=== PATIENT | male | born 1980 | race Caucasian/White ===

== ENCOUNTER 2017-10-25 07:24 | Day surgery (SDC) | payer BC ==
[~2017-10-25] VITALS: Ht 175.3 cm; Wt 76.7 kg
--- NOTE | ~2017-10-25 | OP ---
PATIENT NAME: LEIGH ANN AMAYA MEDICAL RECORD: [id number] :76 LOCATION:D.OPS ADMISSION DATE: SURGEON: PUNEET PERALTA MD DATE OF OPERATION: 10/25/2017 PREOPERATIVE DIAGNOSIS: Anal fissure. POSTOPERATIVE DIAGNOSES: 1. Anal fissure. 2. Anal fistula with a perirectal abscess. 3. Pseudopolyp. 4. Indurated mass at 12 o'clock. PROCEDURES: 1. Anal evaluation under anesthesia. 2. Excisional debridement with drainage of perirectal abscess. 3. Anal biopsy at 12 o'clock with closure. 4. Marsupialization of the abscess cavity. 5. Excision of a pseudopolyp. SURGEON: Puneet Peralta MD PROCUREMENT CONSULTANT: None. BLOOD LOSS: Minimal. ANESTHESIA: General. COMPLICATIONS: None. Clinically, this patient had an anal fissure. He states that it felt like he was defecating razor blades when he defecated. Also, a nodule could be felt on digital examination. OPERATIVE COURSE: The patient was conveyed to the operating room electively on 10/25/2017. General anesthesia was induced by the anesthesia staff. The patient was placed in the lithotomy position. The anus and perianal areas were sterilely prepped and draped. U-shaped anal retractors were placed. The findings were very unusual. Purulence could be identified coming from within the anus at 6 o'clock. It was coming from an area between the internal and external anal sphincters. I was able to take the reverse probe and was able to probe this and identified that there was an abscess cavity with pus, which was cultured and that this consisted of a fistula that was traveling through this abscess cavity. I brought the reverse fistula probe out through the skin opening and the anoderm. I then incised the fistula over the probe. This revealed an abscess cavity, which led up behind the rectum about 2 inches. 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 I curetted out the abscess cavity. I then irrigated with hydrogen peroxide. I marsupialized the abscess cavity with a running locking 3-0 Vicryl Rapide suture and then put a piece of Gelfoam within the abscess cavity. The posterior distal rectum and anus were very soft. This was due to the underlying abscess cavity. There was a polypoid mass that had not appeared adenomatous and I think it is a pseudopolyp. This was excised. I then oversewed this excised area with a OPERATIVE REPORT [id number] LEIGH ANN AMAYA horizontal mattress 3-0 Vicryl sutures. Upon further inspection, there was a nodular lesion at the anal verge at 12 o'clock. This was excised with the Harmonic scalpel and the dimensions of the excision were 1.0 x 1.0 cm. I then closed the wound with a single horizontal mattress 3-0 Vicryl Rapide suture. Gelfoam was applied within the anus and rectum. A combination of steroid preparation and Marcaine were used to infiltrate the perianal tissues. A topical anesthetic ointment was then applied over the external hemorrhoids. The patient was then extubated and conveyed to the post-anesthesia care unit where he was in stable condition. I will see him in the office in 2-3 weeks. He is going to be dismissed home on Colace, Flagyl, [place] as well as Valium as a good anal muscle relaxant. TRANSINT:[id number] Voice Confirmation ID: [id number] DOCUMENT ID: [id number] PUNEET PERALTA MD CC: CLAY GARIBAY MD [id number] DICTATION DATE: 10/25/171824 JAVA DEVELOPMENT MANAGER: 10/25/172043 [facility] 10/25/17 [facility] [address] [place] [address]
[~2017-10-25 07:24] MED LIST: LIPITOR20 MG PO; ZESTRIL20 MG PO
[2017-10-25 08:12] LABS: HEMATOCRIT 47.7 % (42.0-54.0); HEMOGLOBIN 16.7 g/dL (13.5-17.5); MCH 31.5 pg (26.0-34.0); MCV 89.8 fL (80.0-100.0); MEAN PLATELET VOLUME 9.9 fL (7.4-10.4); RBC 5.31 10x6/uL (4.20-6.10); RDW 11.6 % (11.5-14.5); WBC 11.2 10x3/uL (4.8-10.8)
[2017-10-25 08:37] VITALS: BP 107/58; Ht 175.3 cm; Wt 76.7 kg
[2017-11-01 17:12] LABS: AEROBE ID Preliminary report (())
== END 2017-10-25 16:30 | disposition home or self-care (01) ==
LOC: D.OPS 07:24 → D.PAN 10:30 → D.OPS 10:30
PROVIDERS: Anesthesiology; Surgery
DX: K60.2 Anal fissure, unspecified (principal); K61.1 Rectal abscess; K62.1 Rectal polyp; Z01.812 Encounter for preprocedural laboratory examination